=== PATIENT | male | born 1960 | race American Indian/Alaskan Native ===

== ENCOUNTER 2017-07-02 19:03 | Emergency (ER) | payer MEDICAID, OTHER, SELFPAY ==
[2017-07-02] MEDS ORDERED: DUONEB *Not for PRN Use IH ONE (20:01)
[2017-07-02] MEDS ORDERED: DELTASONE PO ONE (20:01)
[2017-07-02] MEDS ORDERED: NORCO 5/325 PO ONE (20:02)
--- NOTE | 2017-07-02 20:04 | Emergency Department Report ---
ED Asthma HPI - General Chief Complaint: Adult Asthma Stated Complaint: BACK PAIN Time Seen by Provider: 07/02/17 19:56 Source: patient Mode of arrival: Ambulatory Limitations: No Limitations - History of Present Illness MD Complaint: "asthma attack" -: days(s) (5) Asthma History: history of frequent attac, history of prior ED visit Severity: mild Context: none known Associated Symptoms: other (sore throat) - Related Data Current Asthma Therapy: inhaled bronchodilator Previous Rx's Medication Instructions Recorded Last Taken Type Albuterol Sulfate [Ventolin HFA] 2 puff IH Q4H PRN #1 hfa.aer.ad 02/11/13 Unknown Rx Amoxicillin [Trimox CAP] 500 mg PO QID #40 capsule 02/11/13 Unknown Rx Fluticasone Propionate [Flonase] 2 sprays NS DAILY #1 spray.susp 02/11/13 Unknown Rx Hydrocodone Bit/Acetaminophen 1 each PO Q8H PRN #20 tablet 02/11/13 Unknown Rx [Lortab 7.5-500 mg] Ibuprofen [Motrin] 800 mg PO TID PRN #60 tablet 02/11/13 Unknown Rx Loratadine [Claritin] 10 mg PO DAILY #30 tablet 02/11/13 Unknown Rx Prednisone 40 mg PO QDAY #10 tablet 02/11/13 Unknown Rx ALBUTEROL Inhaler [ProAir HFA 2 puff IH QID PRN #1 inhalation 07/02/17 Unknown Rx Inhaler] Acetaminophen/Codeine [Tylenol 2 tab PO Q6H PRN #20 tablet 07/02/17 Unknown Rx /Codeine # 3 tab] predniSONE [Deltasone] 3 tab PO QDAY 5 Days #15 tab 07/02/17 Unknown Rx Allergies Allergy/AdvReac Type Severity Reaction Status Date / Time No Known Allergies Allergy Unverified 02/11/13 12:36 ED Review of Systems ROS: Stated complaint: BACK PAIN Other details as noted in HPI Comment: All other systems reviewed and negative Constitutional: denies: chills, fever Eyes: denies: eye pain ENT: denies: ear pain, throat pain Respiratory: cough, shortness of breath, wheezing Cardiovascular: denies: chest pain Endocrine: no symptoms reported Gastrointestinal: denies: abdominal pain, nausea, diarrhea Neurological: denies: headache, weakness, paresthesias Psychiatric: denies: anxiety, depression Hematological/Lymphatic: denies: easy bleeding, easy bruising ED Past Medical Hx - Past Medical History Previous Medical History?: Yes Hx Hypertension: Yes Hx Diabetes: Yes Hx Asthma: Yes Additional medical history: neuropathy, Herniated disc, impaired vision - Surgical History Past Surgical History?: Yes Additional Surgical History: hand R and Jaw - Social History Smoking Status: Never Smoker Substance Use Type: None - Medications Home Medications: Home Medications Medication Instructions Recorded Confirmed Last Taken Type Albuterol Sulfate [Ventolin HFA] 2 puff IH Q4H PRN #1 hfa.aer.ad 02/11/13 Unknown Rx Amoxicillin [Trimox CAP] 500 mg PO QID #40 capsule 02/11/13 Unknown Rx Fluticasone Propionate [Flonase] 2 sprays NS DAILY #1 spray.susp 02/11/13 Unknown Rx Hydrocodone Bit/Acetaminophen 1 each PO Q8H PRN #20 tablet 02/11/13 Unknown Rx [Lortab 7.5-500 mg] Ibuprofen [Motrin] 800 mg PO TID PRN #60 tablet 02/11/13 Unknown Rx Loratadine [Claritin] 10 mg PO DAILY #30 tablet 02/11/13 Unknown Rx Prednisone 40 mg PO QDAY #10 tablet 02/11/13 Unknown Rx ALBUTEROL Inhaler [ProAir HFA 2 puff IH QID PRN #1 inhalation 07/02/17 Unknown Rx Inhaler] Acetaminophen/Codeine [Tylenol 2 tab PO Q6H PRN #20 tablet 07/02/17 Unknown Rx /Codeine # 3 tab] predniSONE [Deltasone] 3 tab PO QDAY 5 Days #15 tab 07/02/17 Unknown Rx ED Physical Exam - General Limitations: No Limitations General appearance: alert, in no apparent distress - Head Head exam: Present: atraumatic, normocephalic - Eye Eye exam: Present: normal appearance - ENT ENT exam: Present: normal exam, normal orophraynx, mucous membranes dry, mucous membranes moist. Absent: other (no erythema no pharyngitis) - Neck Neck exam: Present: normal inspection - Respiratory Respiratory exam: Present: normal lung sounds bilaterally. Absent: respiratory distress, wheezes, rales, rhonchi - Cardiovascular Cardiovascular Exam: Present: regular rate, normal rhythm. Absent: systolic murmur, diastolic murmur, rubs, gallop - GI/Abdominal GI/Abdominal exam: Present: soft, normal bowel sounds. Absent: distended, tenderness, guarding, rebound - Rectal Rectal exam: Present: deferred - Extremities Exam Extremities exam: Present: normal inspection - Back Exam Back exam: Present: normal inspection - Neurological Exam Neurological exam: Present: alert, oriented X3 - Psychiatric Psychiatric exam: Present: normal affect, normal mood - Skin Skin exam: Present: warm, dry, intact, normal color. Absent: rash ED Course Vital Signs 07/02/17 19:11 Temperature 99.1 F Pulse Rate 112 H Blood Pressure 136/100 O2 Sat by Pulse 95 Oximetry ED Medical Decision Making - Medical Decision Making Mr. Evans presents with cough shortness of breath wheezing. He has generalized pain. +sore throat without signs of pharyngitis. Does have low- grade temperature 99.1 here in the ED. chest x-ray PA lateral view per radiologist no acute process. No infiltrate. Prescribed prednisone and albuterol MDI and Tylenol codeine. Discharged home in stable condition Critical care attestation.: If time is entered above; I have spent that time in minutes in the direct care of this critically ill patient, excluding procedure time. ED Disposition Clinical Impression: Asthma exacerbation, Back pain, chronic Disposition: DC-01 TO HOME OR SELFCARE Is pt being admited?: No Does the pt Need Aspirin: No Condition: Stable Instructions: Asthma (ED) Prescriptions: Acetaminophen/Codeine [Tylenol /Codeine # 3 tab] 2 tab PO Q6H PRN #20 tablet PRN Reason: Pain ALBUTEROL Inhaler [ProAir HFA Inhaler] 2 puff IH QID PRN #1 inhalation PRN Reason: Shortness Of Breath predniSONE [Deltasone] 3 tab PO QDAY 5 Days #15 tab Time of Disposition: 20:49
--- NOTE | 2017-07-02 20:10 | XRay Report ---
FINAL REPORT EXAM: XR CHEST ROUTINE 2V HISTORY: MAULIK TECHNIQUE: PA and lateral views of the chest PRIORS: None. FINDINGS: Lines, tubes, and devices: N/A Lungs and pleura: Trachea is normal in position. Lungs are clear of infiltrate, pleural effusion, vascular congestion, or pneumothorax. Cardiomediastinal silhouette: Cardiac and mediastinal silhouettes are unremarkable. Other: Bony structures are intact. IMPRESSION: No acute cardiopulmonary process seen.
[2017-07-02 21:30] VITALS: BP 146/76
== END 2017-07-02 21:30 | disposition home or self-care (01) ==
LOC: ED 19:03
DX: J45.901 Unspecified asthma with (acute) exacerbation (principal); M54.9 Dorsalgia, unspecified; G89.29 Other chronic pain; I10 Essential (primary) hypertension; E11.9 Type 2 diabetes mellitus without complications; G62.9 Polyneuropathy, unspecified
CPT/HCPCS: 71046; 94640; 99283; J7512

== ENCOUNTER 2020-03-14 17:39 | Emergency (ER) | payer MEDICAID ==
--- NOTE | 2020-03-14 19:18 | Event Note ---
ED Screening Note Date of service: 03/14/20 Time: 19:16 ED Screening Note: Pt complains of syncopal episode yesterday and elevated BP today denies headache, CP, SOB, leg pain/swelling Hx of DM2 normal stress test 5 months ago per pt This initial assessment/diagnostic orders/clinical plan/treatment(s) is/are subject to change based on patients health status, clinical progression and re- assessment by fellow clinical providers in the ED. Further treatment and workup at subsequent clinical providers discretion. Patient/guardian urged not to elope from the ED as their condition may be serious if not clinically assessed and managed. Initial orders include: labs CT head CXR
[2020-03-14 19:54] LABS: Basophils % (Auto) 0.4 % (0.0-1.8); Eosinophils # (Auto) 0.1 K/mm3 (0.0-0.4); Hematocrit 40.7 % (35.5-45.6); Hemoglobin 13.8 gm/dl (11.8-15.2); Lymphocytes # (Auto) 3.1 K/mm3 (1.2-5.4); Lymphocytes % (Auto) 40.2 % (13.4-35.0); Mean Corpuscular HGB Conc 34 % (32-34); Mean Corpuscular Volume 91 fl (84-94); Monocytes # (Auto) 0.6 K/mm3 (0.0-0.8); Monocytes % (Auto) 8.2 % (0.0-7.3); Platelet Count 325 K/mm3 (140-440); Red Blood Count 4.47 M/mm3 (3.65-5.03); Red Cell Distribution Width 14.4 % (13.2-15.2)
[2020-03-14 20:12] LABS: Alanine Aminotransferase 22 units/L (7-56); BUN/Creatinine Ratio 10; Blood Urea Nitrogen 12 mg/dL (9-20); Hemolysis Index 18
--- NOTE | 2020-03-14 21:19 | Emergency Department Report ---
HPI - General Chief Complaint: High BP Time Seen by Provider: 03/14/20 19:02 - HPI HPI: Room 37 The patient is a 59-year-old male present with a chief complaint of syncope. The patient states yesterday he had a syncopal episode while walking to the [facility]. Patient denies any preceding symptoms including palpitations, chest pain, shortness of breath or dizziness. The patient states he believes he was unconscious for a minute or 2 and woke up on the ground. The patient states today he checked his blood pressure was getting systolic numbers ranging from 161-171. The patient states this is why he came to the emergency department. Patient denies fever, cough or known contact with Covid patients. Patient states he has been compliant with his lisinopril ED Past Medical Hx - Past Medical History Previous Medical History?: Yes Hx Hypertension: Yes Hx Diabetes: Yes Hx Asthma: Yes Additional medical history: neuropathy, Herniated disc, impaired vision - Surgical History Additional Surgical History: hand R and Jaw - Family History Family history: no significant - Social History Smoking Status: Never Smoker Substance Use Type: None (Denies illicit drug use) - Medications Home Medications: Home Medications Medication Instructions Recorded Confirmed Last Taken Type Albuterol Sulfate [Ventolin HFA] 2 puff IH Q4H PRN #1 hfa.aer.ad 02/11/13 Unknown Rx Amoxicillin [Trimox CAP] 500 mg PO QID #40 capsule 02/11/13 Unknown Rx Fluticasone Propionate [Flonase] 2 sprays NS DAILY #1 spray.susp 02/11/13 Unknown Rx Hydrocodone Bit/Acetaminophen 1 each PO Q8H PRN #20 tablet 02/11/13 Unknown Rx [Lortab 7.5-500 mg] Ibuprofen [Motrin] 800 mg PO TID PRN #60 tablet 02/11/13 Unknown Rx Loratadine (Nf) [Claritin] 10 mg PO DAILY #30 tablet 02/11/13 Unknown Rx Prednisone 40 mg PO QDAY #10 tablet 02/11/13 Unknown Rx Acetaminophen/Codeine [Tylenol 2 tab PO Q6H PRN #20 tablet 07/02/17 Unknown Rx /Codeine # 3 tab] Albuterol Mdi (or & Nicu Only) 2 puff IH QID PRN #1 inhalation 07/02/17 Unknown Rx [ProAir HFA Inhaler] predniSONE [Deltasone] 3 tab PO QDAY 5 Days #15 tab 07/02/17 Unknown Rx ED Review of Systems ROS: Stated complaint: HIGH BLOOD PRESSURE Other details as noted in HPI Constitutional: no symptoms reported Eyes: denies: eye pain ENT: denies: throat pain Respiratory: no symptoms reported Cardiovascular: denies: chest pain, palpitations Endocrine: no symptoms reported Gastrointestinal: denies: nausea, vomiting Genitourinary: denies: dysuria Musculoskeletal: denies: back pain Neurological: other (Syncope). denies: headache Physical Exam - Physical Exam Vital Signs: Vital Signs 03/14/20 17:41 Temperature 98.0 F Pulse Rate 97 H Respiratory 18 Rate Blood Pressure 163/104 O2 Sat by Pulse 96 Oximetry Physical Exam: GENERAL: The patient is well-developed well-nourished male lying on stretcher not appearing to be in acute distress. [] HEENT: Normocephalic. Atraumatic. Extraocular motions are intact. Strabismus present. Patient has moist mucous membranes. NECK: Supple. Trachea midline CHEST/LUNGS: Clear to auscultation. There is no respiratory distress noted. HEART/CARDIOVASCULAR: Regular. There is no tachycardia. There is no gallop rub or murmur. ABDOMEN: Abdomen is soft, nontender. Patient has normal bowel sounds. There is no abdominal distention. SKIN: There is no rash. There is no edema. There is no diaphoresis. NEURO: The patient is awake, alert, and oriented. The patient is cooperative. The patient has no focal neurologic deficits. The patient has normal speech. Cranial nerves II through XII grossly intact MUSCULOSKELETAL: There is no evidence of acute injury. ED Course Vital Signs 03/14/20 17:41 Temperature 98.0 F Pulse Rate 97 H Respiratory 18 Rate Blood Pressure 163/104 O2 Sat by Pulse 96 Oximetry - Reevaluation(s) Reevaluation #1: 03/14/20 22:48 Blood pressure improved see nursing note (systolic 140s) ED Medical Decision Making - Lab Data Result diagrams: 03/14/20 19:36 03/14/20 19:36 Laboratory Tests 03/14/20 03/14/20 19:36 19:36 WBC 7.6 RBC 4.47 Hgb 13.8 Hct 40.7 MCV 91 MCH 31 MCHC 34 RDW 14.4 Plt Count 325 Lymph % (Auto) 40.2 H Clay % (Auto) 8.2 H Eos % (Auto) 1.0 Baso % (Auto) 0.4 Lymph # (Auto) 3.1 Clay # (Auto) 0.6 Eos # (Auto) 0.1 Baso # (Auto) 0.0 Seg Neutrophils % 50.2 Seg Neutrophils # 3.8 Sodium 140 Potassium 4.0 Chloride 104.3 Carbon Dioxide 25 Anion Gap 15 BUN 12 Creatinine 1.2 Estimated GFR > 60 BUN/Creatinine Ratio 10 Glucose 226 H Calcium 9.0 Total Bilirubin 0.60 AST 17 ALT 22 Alkaline Phosphatase 152 H Troponin T < 0.010 Total Protein 7.1 Albumin 4.0 Albumin/Globulin Ratio 1.3 - Medical Decision Making I explained to the patient that there are multiple potential etiologies of his syncopal episode some of the more dangerous causes are not always caught in the emergency department. I explained to the patient that is my desire to perform a CAT scan of his brain and that he be admitted to the hospital for further observation. Patient verbalized understanding but states that he does not wish to receive a CAT scan in the emergency department and will follow up with his primary doctor. Patient states he only came to the emergency department to get his blood pressure controlled. I explained to the patient that unable to exclude some potential emergency medical conditions without appropriate work-up. Patient verbalized understanding and states he would like to leave the hospital AGAINST MEDICAL ADVICE once his blood pressure is improved - Differential Diagnosis Syncope Critical care attestation.: If time is entered above; I have spent that time in minutes in the direct care of this critically ill patient, excluding procedure time. ED Disposition Clinical Impression: Syncope Disposition: DC-07 LEFT AGAINST MED ADVICE Is pt being admited?: No Does the pt Need Aspirin: No Condition: Undetermined Instructions: Syncope (ED) Referrals: PRIMARY CARE, [Primary Care Provider] - 3-5 Days Time of Disposition: 22:48 (Patient leaving AMA)
[2020-03-14] MEDS ORDERED: cloNIDine 0.1 MG TAB PO ONE (21:20)
[2020-03-14] MEDS ORDERED: cloNIDine 0.1 MG TAB ONE (21:20)
[2020-03-14 22:49] VITALS: BP 146/92
== END 2020-03-14 22:51 | disposition left against medical advice (07) ==
LOC: ED 17:39
DX: R55 Syncope and collapse (principal); I10 Essential (primary) hypertension; E11.9 Type 2 diabetes mellitus without complications; J45.909 Unspecified asthma, uncomplicated; Z98.890 Other specified postprocedural states; Z79.2 Long term (current) use of antibiotics; Z79.899 Other long term (current) drug therapy
CPT/HCPCS: 36415; 80053; 84484; 85025